=== PATIENT | male | born 1960 | race Caucasian/White ===

== ENCOUNTER 2021-04-10 07:01 | Day surgery (SDC) | payer BC ==
[~2021-04-10 07:01] MED LIST: Midazolam 1 MG/ML 2 ML SDV ONE; Propofol 200 MG/20 ML SDV ONE; fentaNYL 100 MCG/2 ML SDV ONE
[2021-04-10] MEDS ORDERED: Dextrose 5%-Lactated Ringers 1,000 ML IV SCH (07:30)
--- NOTE | 2021-04-12 17:03 | OR ---
DATE OF PROCEDURE: 04/10/2021 SURGEON: Kostas Younger MD PREOPERATIVE DIAGNOSES: 1. Longstanding gastroesophageal reflux disease. 2. History of colonic diverticulosis with indications for screening colonoscopy. POSTOPERATIVE DIAGNOSES: 1. Longstanding gastroesophageal reflux disease with upper endoscopy showing: a. 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 b. Mild antral gastritis. 2. Colonoscopy showing: a. Two very small polyps (25 cm) just above the colorectal anastomosis. b. Uncomplicated left colonic diverticulosis. PROCEDURES PERFORMED: 1. Esophagogastroduodenoscopy with: a. Biopsies of esophagogastric junction for histologic evaluation. b. Biopsies of antrum for CLOtest. 2. Flexible colonoscopy with polypectomy by: a. Biopsy forceps. b. Cautery snare. ANESTHESIA: IV sedation. INDICATION FOR PROCEDURE: This is a 61-year-old male presenting with longstanding gastroesophageal reflux disease along with indications for screening colonoscopy. The patient has been on omeprazole 40 mg a day for a considerable period of time. Plan is to proceed with upper and lower endoscopy with biopsies and/or polypectomy as indicated. Potential risks including bleeding and perforation were discussed, and the patient wishes to proceed. DETAILS OF PROCEDURE: The patient was taken to the operating room and placed in a left lateral decubitus position. IV sedation was administered after which the upper GI endoscope was passed orally through the length of the esophagus and the stomach with retroflexion view of the fundus, and thereafter, through the pyloric channel into the proximal duodenum. Findings included normal hypopharynx, larynx, upper esophageal sphincter, and esophageal body. At the EG junction, a small hiatal hernia was present, and there was some mild edema of the mucosa. 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 No stricturing, plaquing, or other signs of neoplastic change were present however. Within the stomach, there was some patchy redness in the antrum. Otherwise, the pyloric channel and the duodenum to the junction of the third and fourth portions were unremarkable. At this point, biopsies were obtained from the antrum and sent for CLOtest for H pylori. Multiple biopsies were then obtained from the esophagogastric junction and sent for histologic evaluation. Minimal bleeding from the biopsy sites was seen, and the procedure was then concluded. Attention was taken to the colonoscopy. Initial digital rectal exam was performed and was unremarkable. Colonoscope was then passed into the rectum with retroflexion revealing uncomplicated hemorrhoidal columns. Scope was eventually passed to the level of the cecum. The prep was fairly good. The patient was noted to have the colorectal anastomosis from a previous diverticulitis excision several years ago. Otherwise, the patient had some uncomplicated diverticulosis on the colon above the colorectal anastomosis. As mentioned above, the prep was very good. The patient had 2 very small polyps around 25 cm going just a few centimeters above the colorectal anastomosis. One of these was removed by means of biopsy forceps and the other by means of cautery snare. Both were sent separately for histologic evaluation. Minimal bleeding was noted which stopped spontaneously, and the procedure was then concluded. We will have the patient continue on the omeprazole 40 mg a day, and we will contact the patient regarding pathology and NELSON test results and therefore, plan for future endoscopies. Kostas Younger MD /[id number]
== END 2021-04-10 11:10 | disposition home or self-care (01) ==
LOC: JP.SDS 07:01
PROVIDERS: ATTEND Surgery
DX: Z12.11 Encounter for screening for malignant neoplasm of colon (principal); D12.6 Benign neoplasm of colon, unspecified; K21.9 Gastro-esophageal reflux disease without esophagitis; K44.9 Diaphragmatic hernia without obstruction or gangrene; K29.60 Other gastritis without bleeding; K64.9 Unspecified hemorrhoids; K57.30 Diverticulosis of large intestine without perforation or abscess without bleeding; K29.50 Unspecified chronic gastritis without bleeding; K31.A0 Gastric intestinal metaplasia, unspecified; Z98.0 Intestinal bypass and anastomosis status
CPT/HCPCS: 43239; 45380; 45385; 87081; J2250; J2704; J3010; J7121; 88305

== ENCOUNTER 2022-05-28 05:52 | Inpatient (IN) | payer BC ==
[2022-05-28] MEDS ORDERED: Scopolamine 1.5 MG Transdermal Patch TOP ONE (06:18)
[2022-05-28] MEDS ORDERED: Dextrose 5%-Lactated Ringers 1,000 ML IV SCH (06:30)
[2022-05-28] MEDS ORDERED: Acetaminophen 500 MG Tab PO ONE (06:30)
[2022-05-28] MEDS ORDERED: Celecoxib 200 MG Cap PO SCH (06:30)
[2022-05-28] MEDS ORDERED: Lidocaine 1% with EPINEPHrine 1:100,000 50 ML MDV ONE (06:39)
[2022-05-28] MEDS ORDERED: Bupivacaine 0.5% 30 ML SDV ONE (06:39)
[2022-05-28] MEDS ORDERED: cefOXitin 2 GM Vial ONE (06:39)
[2022-05-28] MEDS ORDERED: Ketamine 23 MG in Sodium Chloride 0.9% 19.77 ML IV SCH (07:15)
[2022-05-28] MEDS ORDERED: cefOXitin 2 GM in Sodium Chloride 0.9% 50 ML IV ONE (07:15)
[2022-05-28] MEDS ORDERED: Ketamine 500 MG/5 ML MDV IV SCH (07:15)
[2022-05-28] MEDS ORDERED: Succinylcholine 200 MG/10 ML MDV ONE (07:58)
[2022-05-28] MEDS ORDERED: Glycopyrrolate 0.2 MG/ML 5 ML MDV ONE (07:58)
[2022-05-28] MEDS ORDERED: Neostigmine Methylsulfate 1 MG/ML 5 ML Syringe ONE (07:58)
[2022-05-28] MEDS ORDERED: Rocuronium 50 MG/5 ML Vial ONE ×2 (07:58→08:35)
[2022-05-28] MEDS ORDERED: Propofol 200 MG/20 ML SDV ONE (07:58)
[2022-05-28] MEDS ORDERED: Dexamethasone 4 MG/ML SDV ONE (07:58)
[2022-05-28] MEDS ORDERED: Ondansetron 4 MG/2 ML SDV ONE (07:58)
[2022-05-28] MEDS ORDERED: Sodium Chloride 0.9% 10 ML ONE (08:22)
[2022-05-28] MEDS ORDERED: Meropenem 500 MG SDV ONE (08:22)
[2022-05-28] MEDS: HYDROmorphone/Normal Saline 6 MG/30 ML PCA Vial IV PRN (08:29)
[2022-05-28] MEDS ORDERED: Lactated Ringers 1,000 ML ONE ×2 (08:34)
[2022-05-28] MEDS ORDERED: Naloxone 0.4 MG/ML SDV IV PRN (09:00)
[2022-05-28] MEDS ORDERED: Tranexamic Acid 1,000 MG in Sodium Chloride 0.9% 50 ML IV ONE (10:00)
[2022-05-28] MEDS ORDERED: Linezolid 600 MG/300 ML Premix Bag IRR ONE (10:30)
[2022-05-28] MEDS ORDERED: Cyclobenzaprine 10 MG Tab PO PRN (12:35)
[2022-05-28] MEDS ORDERED: Glucagon,Human Recombinant 1 MG Vial IM PRN (13:00)
[2022-05-28] MEDS ORDERED: Metoclopramide 10 MG/2 ML SDV IVPUSH PRN (13:00)
[2022-05-28] MEDS ORDERED: Labetalol 20 MG/4 ML Syringe IVPUSH PRN (13:00)
[2022-05-28] MEDS ORDERED: Ondansetron 4 MG/2 ML SDV IVPUSH PRN (13:00)
[2022-05-28] MEDS ORDERED: 50% Dextrose in Water 50 ML Syringe IVPUSH PRN (13:00)
[2022-05-28] MEDS ORDERED: diphenhydrAMINE 50 MG/ML SDV IVPUSH PRN (13:00)
[2022-05-28] MEDS ORDERED: Acetaminophen 500 MG Tab PO PRN (13:00)
[2022-05-28] MEDS ORDERED: hydrOXYzine HCL 100 MG/2 ML SDV IM PRN (13:00)
[2022-05-28] MEDS ORDERED: Pantoprazole 40 MG Vial IVPUSH SCH (14:00)
[2022-05-28] MEDS: Lactated Ringers 1,000 ML IV SCH ×2 (14:23→23:39)
[2022-05-28] MEDS: cefOXitin 2 GM in Sodium Chloride 0.9% 50 ML IV SCH ×2 (14:35→19:55)
[2022-05-28] MEDS: Acetaminophen 500 MG Tab PO SCH ×2 (15:35→22:00)
[2022-05-28] MEDS ORDERED: MVI, Adult with Vitamin K 10 ML, Thiamine 200 MG, Zinc/Copper/Manganese/Selenium 1 ML i... IV SCH ×4 (16:00)
[2022-05-28] MEDS ORDERED: Insulin Lispro 100 Unit/ML 3 ML KwikPen SUBCUT ONE (16:41)
[2022-05-28] MEDS: Insulin Lispro 100 Unit/ML 3 ML KwikPen SUBCUT SCH ×2 (16:41→22:00)
[2022-05-28] MEDS: Heparin Sodium 5,000 Units/ML Vial SUBCUT SCH (18:32)
[2022-05-28] MEDS ORDERED: Lactated Ringers 500 ML IV ONE (18:45)
[2022-05-29] MEDS: cefOXitin 2 GM in Sodium Chloride 0.9% 50 ML IV SCH ×4 (02:35→20:10)
[2022-05-29] MEDS ORDERED: Iopamidol 612 MG/ML 50 ML SDV PO STA (02:41)
[2022-05-29] MEDS: HYDROmorphone/Normal Saline 6 MG/30 ML PCA Vial IV PRN (03:28)
[2022-05-29] MEDS: Insulin Lispro 100 Unit/ML 3 ML KwikPen SUBCUT SCH ×4 (05:01→21:58)
[2022-05-29] MEDS: Acetaminophen 500 MG Tab PO SCH ×3 (05:02→21:38)
[2022-05-29] MEDS: Heparin Sodium 5,000 Units/ML Vial SUBCUT SCH ×2 (05:03→18:23)
[2022-05-29 05:18] LABS: ESTIMATED GFR 86 mL/min (>60)
[2022-05-29] MEDS: Lactated Ringers 1,000 ML IV SCH (05:56)
[2022-05-29] MEDS ORDERED: Ondansetron 4 MG Tab.DIS PO PRN (07:38)
[2022-05-29] MEDS ORDERED: Lactated Ringers 1,000 ML IV SCH (07:39)
[2022-05-29] MEDS: Magnesium Sulfate/Water 2 GM/50 ML BAG IV SCH ×3 (09:00→21:33)
[2022-05-29] MEDS: SCOPOLAMINE PATCH CHECK TOP SCH (09:04)
[2022-05-29] MEDS: Aspirin 81 MG Tab.EC PO SCH (09:04)
[2022-05-29] MEDS: Celecoxib 200 MG Cap PO SCH ×2 (09:04→21:38)
[2022-05-29] MEDS: Lisinopril 2.5 MG Tab PO SCH (09:05)
[2022-05-29] MEDS: Metoprolol Succinate 25 MG Tab.ER PO SCH (09:05)
[2022-05-29] MEDS ORDERED: MVI, Adult with Vitamin K 10 ML, Thiamine 200 MG, Zinc/Copper/Manganese/Selenium 1 ML i... IV SCH ×4 (16:00)
[2022-05-29] MEDS ORDERED: Pantoprazole 40 MG Delayed-Release Granules 1 Packet PO SCH (16:30)
[2022-05-29] MEDS: Bisacodyl 5 MG Tab PO SCH (18:22)
[2022-05-29] MEDS: hydrOXYzine HCl 25 MG Tab PO PRN (21:59)
[2022-05-30] MEDS: cefOXitin 2 GM in Sodium Chloride 0.9% 50 ML IV SCH ×2 (02:15→07:32)
[2022-05-30] MEDS: Magnesium Sulfate/Water 2 GM/50 ML BAG IV SCH ×3 (03:06→14:07)
[2022-05-30] MEDS: Insulin Lispro 100 Unit/ML 3 ML KwikPen SUBCUT SCH ×4 (05:10→22:09)
[2022-05-30] MEDS: Acetaminophen 500 MG Tab PO SCH ×3 (05:11→21:43)
[2022-05-30] MEDS: Bisacodyl 5 MG Tab PO SCH ×2 (05:11→18:06)
[2022-05-30] MEDS: Heparin Sodium 5,000 Units/ML Vial SUBCUT SCH ×2 (05:11→18:06)
[2022-05-30 05:27] LABS: ESTIMATED GFR 97 mL/min (>60)
[2022-05-30] MEDS ORDERED: hydrOXYzine HCl 25 MG Tab PO PRN (07:50)
[2022-05-30] MEDS: Aspirin 81 MG Tab.EC PO SCH (08:37)
[2022-05-30] MEDS: Metoprolol Succinate 25 MG Tab.ER PO SCH (08:37)
[2022-05-30] MEDS: Lisinopril 2.5 MG Tab PO SCH (08:37)
[2022-05-30] MEDS: SCOPOLAMINE PATCH CHECK TOP SCH (08:37)
[2022-05-30] MEDS: Celecoxib 200 MG Cap PO SCH ×2 (08:37→21:36)
[2022-05-30] MEDS: HYDROmorphone 2 MG Tab PO PRN ×3 (08:40→21:42)
[2022-05-30] MEDS ORDERED: Cyanocobalamin (Vitamin B12) 1,000 MCG/ML SDV IM ONE (09:00)
[2022-05-30] MEDS ORDERED: Pantoprazole 40 MG Tab.CR PO SCH (16:30)
[2022-05-30] MEDS: hydrOXYzine HCl 25 MG Tab PO PRN (21:42)
[2022-05-31] MEDS: HYDROmorphone 2 MG Tab PO PRN ×2 (04:26→10:07)
[2022-05-31] MEDS: hydrOXYzine HCl 25 MG Tab PO PRN ×2 (04:27→10:07)
[2022-05-31] MEDS: Insulin Lispro 100 Unit/ML 3 ML KwikPen SUBCUT SCH (04:27)
[2022-05-31] MEDS: Heparin Sodium 5,000 Units/ML Vial SUBCUT SCH (06:08)
[2022-05-31] MEDS: Bisacodyl 5 MG Tab PO SCH (06:08)
[2022-05-31] MEDS: Acetaminophen 500 MG Tab PO SCH (06:09)
[2022-05-31] MEDS ORDERED: Magnesium Hydroxide 400 MG/5 ML Susp 30 ML Cup PO PRN (07:20)
[2022-05-31] MEDS: Celecoxib 200 MG Cap PO SCH (08:15)
[2022-05-31] MEDS: Aspirin 81 MG Tab.EC PO SCH (08:15)
[2022-05-31] MEDS: Lisinopril 2.5 MG Tab PO SCH (08:18)
[2022-05-31] MEDS: Metoprolol Succinate 25 MG Tab.ER PO SCH (08:18)
== END 2022-05-31 10:15 | disposition home or self-care (01) | DRG 403 ==
LOC: JP.SDS 05:52 → JP.2SS 10:45 → EDSTATUS 12:02
PROVIDERS: ADMIT Surgery; ATTEND Surgery
PROC: 0D160ZA Bypass Stomach to Jejunum, Open Approach (ICD-10-PCS; principal; 2022-05-28)
PROC: 0FB20ZX Excision of Left Lobe Liver, Open Approach, Diagnostic (ICD-10-PCS; 2022-05-28)
PROC: 0BQT0ZZ Repair Diaphragm, Open Approach (ICD-10-PCS; 2022-05-28)
PROC: 3E0M05Z Introduction of Adhesion Barrier into Peritoneal Cavity, Open Approach (ICD-10-PCS; 2022-05-28)
DX: E66.01 Morbid (severe) obesity due to excess calories (principal); R16.0 Hepatomegaly, not elsewhere classified; K44.9 Diaphragmatic hernia without obstruction or gangrene; K56.609 Unspecified intestinal obstruction, unspecified as to partial versus complete obstruction; I25.10 Atherosclerotic heart disease of native coronary artery without angina pectoris; E11.9 Type 2 diabetes mellitus without complications; I10 Essential (primary) hypertension; Z68.32 Body mass index [BMI] 32.0-32.9, adult; Z91.030 Bee allergy status
CPT/HCPCS: 36415; 74240; 74240-26; 80053; 82947; 83735; 84100; 85025; 85027; 88305; 88307; 88313; A9270-GY; C9113; J0171; J0330; J0694; J1100; J1170; J1200; J1644; J1815; J1815-GY; J2020; J2185; J2405; J2704; J2710; J2795; J3411; J3420; J3475; J3490; J7120; J7121; Q9967

== ENCOUNTER 2022-06-28 08:48 | Day surgery (SDC) | payer BC ==
[~2022-06-28 08:48] MED LIST changes: +Lactated Ringers 1,000 ML IV SCH; -fentaNYL 100 MCG/2 ML SDV ONE; +fentaNYL 50 MCG/ML SDV ONE
[2022-06-28] MEDS ORDERED: Glycopyrrolate 0.2 MG/ML 2 ML SDV IVPUSH ONE ×2 (09:00→09:30)
[2022-06-28] MEDS ORDERED: Cyanocobalamin (Vitamin B12) 1,000 MCG/ML SDV IM ONE (09:02)
[2022-06-28 09:39] LABS: ESTIMATED GFR 101 mL/min (>60)
[2022-06-28] MEDS ORDERED: MVI, Adult with Vitamin K 10 ML, Thiamine 200 MG, Zinc/Copper/Manganese/Selenium 1 ML i... IV ONE ×4 (10:00)
[2022-06-28] MEDS ORDERED: Dexamethasone 4 MG/ML SDV ONE (10:26)
== END 2022-06-28 11:55 | disposition home or self-care (01) ==
LOC: JP.SDS 08:48
PROVIDERS: ATTEND Surgery
DX: K94.23 Gastrostomy malfunction (principal); E78.5 Hyperlipidemia, unspecified; E11.9 Type 2 diabetes mellitus without complications; Z98.84 Bariatric surgery status; Z79.899 Other long term (current) drug therapy; Z91.048 Other nonmedicinal substance allergy status
CPT/HCPCS: 36415; 43247; 43249; 76000; 80053; 83735; 84100; 85027; C1726; J1100; J2250; J2704; J3010; J3411; J3420; J3490; J7120

== ENCOUNTER 2022-07-12 08:58 | Day surgery (SDC) | payer BC ==
[2022-07-12] MEDS ORDERED: Cyanocobalamin (Vitamin B12) 1,000 MCG/ML SDV IM ONE (09:30)
[2022-07-12] MEDS ORDERED: Lactated Ringers 1,000 ML IV ONE (09:30)
[2022-07-12] MEDS ORDERED: MVI, Adult with Vitamin K 10 ML, Thiamine 200 MG, Zinc/Copper/Manganese/Selenium 1 ML i... IV ONE ×4 (10:30)
[2022-07-12] MEDS ORDERED: Glycopyrrolate 0.2 MG/ML 2 ML SDV IVPUSH ONE (10:30)
[2022-07-12] MEDS ORDERED: fentaNYL 100 MCG/2 ML SDV ONE (10:38)
[2022-07-12] MEDS ORDERED: Midazolam 1 MG/ML 2 ML SDV ONE (10:38)
[2022-07-12] MEDS ORDERED: Propofol 200 MG/20 ML SDV ONE (10:38)
[2022-07-12] MEDS ORDERED: Dexamethasone 4 MG/ML SDV ONE (11:18)
[2022-07-12] MEDS ORDERED: Fluconazole/Normal Saline 400 MG in Premix Bag 1 BAG IV ONE (11:32)
== END 2022-07-12 14:30 | disposition home or self-care (01) ==
LOC: JP.SDS 08:58
PROVIDERS: ATTEND Surgery
DX: K94.23 Gastrostomy malfunction (principal); R13.10 Dysphagia, unspecified; I10 Essential (primary) hypertension; E78.5 Hyperlipidemia, unspecified; K21.9 Gastro-esophageal reflux disease without esophagitis; I25.10 Atherosclerotic heart disease of native coronary artery without angina pectoris; E66.9 Obesity, unspecified; E11.9 Type 2 diabetes mellitus without complications; Z68.30 Body mass index [BMI] 30.0-30.9, adult; Z79.899 Other long term (current) drug therapy; Z91.048 Other nonmedicinal substance allergy status
CPT/HCPCS: 43245; C1726; J1100; J1450; J2250; J2704; J3010; J3411; J3420; J3490; J7120

== ENCOUNTER 2022-07-27 10:58 | Day surgery (SDC) | payer BC ==
[~2022-07-27 10:58] MED LIST changes: -Lactated Ringers 1,000 ML IV SCH; +fentaNYL 100 MCG/2 ML SDV ONE; -fentaNYL 50 MCG/ML SDV ONE
[2022-07-27] MEDS ORDERED: Lactated Ringers 1,000 ML IV SCH (11:00)
[2022-07-27] MEDS ORDERED: Cyanocobalamin (Vitamin B12) 1,000 MCG/ML SDV IM ONE (11:00)
[2022-07-27] MEDS ORDERED: MVI, Adult with Vitamin K 10 ML, Thiamine 200 MG, Chromium/Copper/Mang/Selen/Zn 1 ML in... IV ONE ×4 (12:00)
[2022-07-27] MEDS ORDERED: Dexamethasone 4 MG/ML SDV ONE (14:04)
[2022-07-27] MEDS ORDERED: Ondansetron 4 MG/2 ML SDV ONE (14:13)
== END 2022-07-27 15:18 | disposition home or self-care (01) ==
LOC: JP.SDS 10:58
PROVIDERS: ATTEND Surgery
DX: K94.23 Gastrostomy malfunction (principal); R13.10 Dysphagia, unspecified; K90.9 Intestinal malabsorption, unspecified; Z79.899 Other long term (current) drug therapy; Z91.048 Other nonmedicinal substance allergy status
CPT/HCPCS: 43245; C1726; J1100; J2250; J2405; J2704; J3010; J3411; J3420; J7120

== ENCOUNTER 2022-08-20 05:56 | Day surgery (SDC) | payer BC ==
[2022-08-20] MEDS ORDERED: Lactated Ringers 1,000 ML IV ONE (06:15)
[2022-08-20] MEDS ORDERED: Cyanocobalamin (Vitamin B12) 1,000 MCG/ML SDV IM ONE (06:30)
[2022-08-20] MEDS ORDERED: Propofol 200 MG/20 ML SDV ONE (07:07)
[2022-08-20] MEDS ORDERED: fentaNYL 50 MCG/ML SDV ONE (07:07)
[2022-08-20] MEDS ORDERED: Dexamethasone 4 MG/ML SDV ONE (07:16)
[2022-08-20] MEDS ORDERED: Ondansetron 4 MG/2 ML SDV ONE (07:16)
[2022-08-20] MEDS ORDERED: MVI, Adult with Vitamin K 10 ML, Thiamine 200 MG, Zinc/Copper/Manganese/Selenium 1 ML i... IV ONE ×4 (07:30)
== END 2022-08-20 09:53 | disposition home or self-care (01) ==
LOC: JP.SDS 05:56
PROVIDERS: ATTEND Surgery
DX: K95.89 Other complications of other bariatric procedure (principal); K31.89 Other diseases of stomach and duodenum; R13.10 Dysphagia, unspecified; E78.00 Pure hypercholesterolemia, unspecified; I25.10 Atherosclerotic heart disease of native coronary artery without angina pectoris; K21.9 Gastro-esophageal reflux disease without esophagitis; E11.9 Type 2 diabetes mellitus without complications; Z79.899 Other long term (current) drug therapy; Z98.890 Other specified postprocedural states; Z91.048 Other nonmedicinal substance allergy status
CPT/HCPCS: 43245; C1726; J1100; J2405; J2704; J3010; J3411; J3420; J7120; J3490

== ENCOUNTER 2022-09-17 07:36 | Day surgery (SDC) | payer BC ==
[2022-09-17] MEDS: Scopolamine 1.5 MG Transdermal Patch TOP SCH ×2 (07:47→08:06)
[2022-09-17] MEDS ORDERED: Lactated Ringers 1,000 ML IV SCH (08:15)
[2022-09-17] MEDS ORDERED: Propofol 200 MG/20 ML SDV ONE (08:18)
[2022-09-17] MEDS ORDERED: fentaNYL 100 MCG/2 ML SDV ONE (08:18)
[2022-09-17] MEDS ORDERED: Midazolam 1 MG/ML 2 ML SDV ONE (08:18)
[2022-09-17] MEDS ORDERED: Ondansetron 4 MG/2 ML SDV ONE (08:20)
[2022-09-17] MEDS ORDERED: Dexamethasone 4 MG/ML SDV ONE (08:20)
[2022-09-17] MEDS ORDERED: MVI, Adult with Vitamin K 10 ML, Thiamine 200 MG, Zinc/Copper/Manganese/Selenium 1 ML i... IV ONE ×4 (09:30)
== END 2022-09-17 11:12 | disposition home or self-care (01) ==
LOC: JP.SDS 07:36
PROVIDERS: ATTEND Surgery
DX: K94.23 Gastrostomy malfunction (principal); K31.89 Other diseases of stomach and duodenum; I10 Essential (primary) hypertension; E11.9 Type 2 diabetes mellitus without complications; K21.9 Gastro-esophageal reflux disease without esophagitis; I25.10 Atherosclerotic heart disease of native coronary artery without angina pectoris; Z95.5 Presence of coronary angioplasty implant and graft; Z79.899 Other long term (current) drug therapy; Z91.048 Other nonmedicinal substance allergy status
CPT/HCPCS: 43266; C1726; C1874; J1100; J1790; J2250; J2405; J2704; J3010; J3411; J7120; A9270-GY; J3490

== ENCOUNTER 2022-10-16 07:40 | Day surgery (SDC) | payer BC ==
[~2022-10-16 07:40] MED LIST changes: +Cyanocobalamin (Vitamin B12) 1,000 MCG/ML SDV IM ONE; +Lactated Ringers 1,000 ML IV ONE; -Midazolam 1 MG/ML 2 ML SDV ONE; -Propofol 200 MG/20 ML SDV ONE; -fentaNYL 100 MCG/2 ML SDV ONE
[2022-10-16] MEDS ORDERED: MVI, Adult with Vitamin K 10 ML, Thiamine 200 MG, Zinc/Copper/Manganese/Selenium 1 ML i... IV ONE ×8 (08:15→09:15)
[2022-10-16] MEDS ORDERED: Lactated Ringers 1,000 ML IV ONE (08:15)
[2022-10-16 08:26] LABS: ESTIMATED GFR 101 mL/min (>60)
[2022-10-16] MEDS ORDERED: Cyanocobalamin (Vitamin B12) 1,000 MCG/ML SDV IM ONE (08:30)
[2022-10-16] MEDS ORDERED: Scopolamine 1.5 MG Transdermal Patch TOP ONE (08:32)
[2022-10-16] MEDS ORDERED: Rocuronium 50 MG/5 ML Vial ONE (09:26)
[2022-10-16] MEDS ORDERED: Glycopyrrolate 0.2 MG/ML 5 ML MDV ONE (09:26)
[2022-10-16] MEDS ORDERED: Neostigmine Methylsulfate 1 MG/ML 5 ML Syringe ONE (09:26)
[2022-10-16] MEDS ORDERED: Ondansetron 4 MG/2 ML SDV ONE (09:26)
[2022-10-16] MEDS ORDERED: fentaNYL 250 MCG/5 ML SDV ONE (09:26)
[2022-10-16] MEDS ORDERED: Dexamethasone 4 MG/ML SDV ONE (09:26)
[2022-10-16] MEDS ORDERED: Succinylcholine 200 MG/10 ML MDV ONE (09:26)
[2022-10-16] MEDS ORDERED: Propofol 200 MG/20 ML SDV ONE (09:26)
== END 2022-10-16 15:10 | disposition home or self-care (01) ==
LOC: JP.SDS 07:40
PROVIDERS: ATTEND Surgery
DX: K91.89 Other postprocedural complications and disorders of digestive system (principal); K31.89 Other diseases of stomach and duodenum; T85.528A Displacement of other gastrointestinal prosthetic devices, implants and grafts, initial encounter; R13.10 Dysphagia, unspecified; I10 Essential (primary) hypertension; I25.10 Atherosclerotic heart disease of native coronary artery without angina pectoris; Z91.048 Other nonmedicinal substance allergy status
CPT/HCPCS: 36415; 43245; 43247; 74019; 80053; 83735; 84100; 85027; A9270; C1726; J0330; J1100; J2405; J2704; J3010; J3411; J3420; J7120; J2710; J3490

== ENCOUNTER 2022-11-01 06:31 | Day surgery (SDC) | payer BC ==
[2022-11-01] MEDS ORDERED: Lactated Ringers 1,000 ML IV SCH (07:00)
[2022-11-01] MEDS ORDERED: Midazolam 1 MG/ML 2 ML SDV ONE (07:10)
[2022-11-01] MEDS ORDERED: fentaNYL 50 MCG/ML SDV ONE (07:11)
[2022-11-01] MEDS ORDERED: Propofol 200 MG/20 ML SDV ONE (07:11)
[2022-11-01] MEDS ORDERED: Cyanocobalamin (Vitamin B12) 1,000 MCG/ML SDV IM ONE ×2 (07:30→09:00)
[2022-11-01] MEDS ORDERED: Dexamethasone 4 MG/ML SDV ONE (07:59)
[2022-11-01] MEDS ORDERED: MVI, Adult with Vitamin K 10 ML, Thiamine 200 MG, Zinc/Copper/Manganese/Selenium 1 ML i... IV ONE ×4 (10:00)
== END 2022-11-01 09:57 | disposition home or self-care (01) ==
LOC: JP.SDS 06:31
PROVIDERS: ATTEND Surgery
DX: K94.23 Gastrostomy malfunction (principal); I10 Essential (primary) hypertension; E78.5 Hyperlipidemia, unspecified; Z79.899 Other long term (current) drug therapy
CPT/HCPCS: 43245; 76000; C1726; J1100; J2250; J2704; J3010; J3411; J3420; J7120; J3490

== ENCOUNTER 2022-11-15 08:02 | Day surgery (SDC) | payer BC ==
[~2022-11-15 08:02] MED LIST changes: -Cyanocobalamin (Vitamin B12) 1,000 MCG/ML SDV IM ONE; -Lactated Ringers 1,000 ML IV ONE; +Midazolam 1 MG/ML 2 ML SDV ONE; +Propofol 200 MG/20 ML SDV ONE; +fentaNYL 50 MCG/ML SDV ONE
[2022-11-15] MEDS ORDERED: Lactated Ringers 1,000 ML IV SCH (08:30)
[2022-11-15] MEDS ORDERED: Cyanocobalamin (Vitamin B12) 1,000 MCG/ML SDV IM ONE (08:30)
[2022-11-15] MEDS ORDERED: MVI, Adult with Vitamin K 10 ML, Thiamine 200 MG, Zinc/Copper/Manganese/Selenium 1 ML i... IV ONE ×4 (09:30)
[2022-11-15] MEDS ORDERED: Dexamethasone 4 MG/ML SDV ONE (10:02)
== END 2022-11-15 12:53 | disposition home or self-care (01) ==
LOC: JP.SDS 08:02
PROVIDERS: ATTEND Surgery
DX: K91.89 Other postprocedural complications and disorders of digestive system (principal); K31.89 Other diseases of stomach and duodenum; I10 Essential (primary) hypertension; E11.9 Type 2 diabetes mellitus without complications; Z98.0 Intestinal bypass and anastomosis status; E66.9 Obesity, unspecified; K21.9 Gastro-esophageal reflux disease without esophagitis; Z98.84 Bariatric surgery status; Z91.048 Other nonmedicinal substance allergy status
CPT/HCPCS: 76000; C1726; J1100; J2250; J2704; J3010; J3411; J3420; J3490; J7120

== ENCOUNTER 2022-11-29 09:02 | Day surgery (SDC) | payer BC ==
[2022-11-29] MEDS ORDERED: Cyanocobalamin (Vitamin B12) 1,000 MCG/ML SDV IM ONE (09:30)
[2022-11-29] MEDS ORDERED: Lactated Ringers 1,000 ML IV ONE (09:30)
[2022-11-29] MEDS ORDERED: Dexamethasone 4 MG/ML SDV ONE (10:18)
[2022-11-29] MEDS ORDERED: MVI, Adult with Vitamin K 10 ML, Thiamine 200 MG, Zinc/Copper/Manganese/Selenium 1 ML i... IV ONE ×4 (10:30)
== END 2022-11-29 12:20 | disposition home or self-care (01) ==
LOC: JP.SDS 09:02
PROVIDERS: ATTEND Surgery
DX: K94.23 Gastrostomy malfunction (principal); R13.10 Dysphagia, unspecified; E11.9 Type 2 diabetes mellitus without complications; Z91.048 Other nonmedicinal substance allergy status
CPT/HCPCS: 43245; C1726; J1100; J2250; J2704; J3010; J3411; J3420; J7120; J3490

== ENCOUNTER 2022-12-14 06:00 | Day surgery (SDC) | payer BC ==
[2022-12-14] MEDS ORDERED: Lactated Ringers 1,000 ML IV SCH (07:00)
[2022-12-14] MEDS ORDERED: Cyanocobalamin (Vitamin B12) 1,000 MCG/ML SDV IM ONE (07:00)
[2022-12-14] MEDS ORDERED: Propofol 200 MG/20 ML SDV ONE (07:13)
[2022-12-14] MEDS ORDERED: Midazolam 1 MG/ML 2 ML SDV ONE (07:13)
[2022-12-14] MEDS ORDERED: fentaNYL 50 MCG/ML SDV ONE (07:14)
[2022-12-14] MEDS ORDERED: MVI, Adult with Vitamin K 10 ML, Thiamine 200 MG, Zinc/Copper/Manganese/Selenium 1 ML i... IV ONE ×4 (08:00)
[2022-12-14] MEDS ORDERED: Dexamethasone 4 MG/ML SDV ONE (08:28)
== END 2022-12-14 10:12 | disposition home or self-care (01) ==
LOC: JP.SDS 06:00
PROVIDERS: ATTEND Surgery
DX: K91.89 Other postprocedural complications and disorders of digestive system (principal); K31.89 Other diseases of stomach and duodenum; R13.10 Dysphagia, unspecified; K29.70 Gastritis, unspecified, without bleeding; E78.00 Pure hypercholesterolemia, unspecified; I10 Essential (primary) hypertension; K21.9 Gastro-esophageal reflux disease without esophagitis; E11.9 Type 2 diabetes mellitus without complications; E66.9 Obesity, unspecified; Z98.0 Intestinal bypass and anastomosis status; Z91.048 Other nonmedicinal substance allergy status; Z95.5 Presence of coronary angioplasty implant and graft
CPT/HCPCS: 43245; C1726; J1100; J2250; J2704; J3010; J3411; J3420; J7120; J3490

== ENCOUNTER 2023-01-07 06:56 | Day surgery (SDC) | payer BC ==
[2023-01-07] MEDS ORDERED: fentaNYL 50 MCG/ML SDV ONE (07:12)
[2023-01-07] MEDS ORDERED: Midazolam 1 MG/ML 2 ML SDV ONE (07:12)
[2023-01-07] MEDS ORDERED: Propofol 200 MG/20 ML SDV ONE (07:13)
[2023-01-07] MEDS ORDERED: Cyanocobalamin (Vitamin B12) 1,000 MCG/ML SDV IM ONE (07:15)
[2023-01-07] MEDS ORDERED: Lactated Ringers 1,000 ML IV ONE (07:30)
[2023-01-07] MEDS ORDERED: MVI, Adult with Vitamin K 10 ML, Thiamine 200 MG, Zinc/Copper/Manganese/Selenium 1 ML i... IV ONE ×4 (08:30)
[2023-01-07] MEDS ORDERED: Dexamethasone 4 MG/ML SDV ONE (09:02)
== END 2023-01-07 10:40 | disposition home or self-care (01) ==
LOC: JP.SDS 06:56
PROVIDERS: ATTEND Surgery
DX: K91.89 Other postprocedural complications and disorders of digestive system (principal); K31.89 Other diseases of stomach and duodenum; Z91.048 Other nonmedicinal substance allergy status
CPT/HCPCS: 43245; C1726; J1100; J2250; J2704; J3010; J3411; J3420; J7120; J3490

== ENCOUNTER 2023-02-05 09:04 | Day surgery (SDC) | payer BC ==
[2023-02-05] MEDS ORDERED: Lactated Ringers 1,000 ML IV SCH (09:15)
[2023-02-05] MEDS ORDERED: Cyanocobalamin (Vitamin B12) 1,000 MCG/ML SDV IM ONE (10:00)
[2023-02-05] MEDS: MVI, Adult with Vitamin K 10 ML, Thiamine 200 MG, Zinc/Copper/Manganese/Selenium 1 ML i... IV ONE ×8 (10:09→10:13)
[2023-02-05] MEDS ORDERED: Midazolam 1 MG/ML 2 ML SDV ONE (10:36)
[2023-02-05] MEDS ORDERED: fentaNYL 100 MCG/2 ML SDV ONE (10:36)
[2023-02-05] MEDS ORDERED: Propofol 200 MG/20 ML SDV ONE (10:36)
[2023-02-05] MEDS ORDERED: Dexamethasone 4 MG/ML SDV ONE (11:15)
== END 2023-02-05 11:35 | disposition home or self-care (01) ==
LOC: JP.SDS 09:04
PROVIDERS: ATTEND Surgery
DX: K91.89 Other postprocedural complications and disorders of digestive system (principal); K31.89 Other diseases of stomach and duodenum; R13.10 Dysphagia, unspecified; I10 Essential (primary) hypertension; E78.5 Hyperlipidemia, unspecified; I25.10 Atherosclerotic heart disease of native coronary artery without angina pectoris; K21.9 Gastro-esophageal reflux disease without esophagitis; E11.9 Type 2 diabetes mellitus without complications; K90.9 Intestinal malabsorption, unspecified; Z95.5 Presence of coronary angioplasty implant and graft; Z91.048 Other nonmedicinal substance allergy status
CPT/HCPCS: 43245; J1100; J2250; J2704; J3010; J3411; J3420; J7120; J3490

== ENCOUNTER 2023-03-21 07:26 | Day surgery (SDC) | payer BC ==
[2023-03-21] MEDS ORDERED: Lactated Ringers 1,000 ML IV ONE (07:45)
[2023-03-21] MEDS ORDERED: Cyanocobalamin (Vitamin B12) 1,000 MCG/ML SDV IM ONE (07:45)
[2023-03-21] MEDS ORDERED: Midazolam 1 MG/ML 2 ML SDV ONE (08:38)
[2023-03-21] MEDS ORDERED: Propofol 200 MG/20 ML SDV ONE (08:39)
[2023-03-21] MEDS ORDERED: fentaNYL 50 MCG/ML SDV ONE (08:39)
[2023-03-21] MEDS ORDERED: MVI, Adult with Vitamin K 10 ML, Thiamine 200 MG, Chromium/Copper/Mang/Selen/Zn 1 ML in... IV ONE ×4 (08:45)
[2023-03-21] MEDS ORDERED: Dexamethasone 4 MG/ML SDV ONE (10:03)
== END 2023-03-21 11:30 | disposition home or self-care (01) ==
LOC: JP.SDS 07:26
PROVIDERS: ATTEND Surgery
DX: K91.89 Other postprocedural complications and disorders of digestive system (principal); K31.89 Other diseases of stomach and duodenum; E78.5 Hyperlipidemia, unspecified; I10 Essential (primary) hypertension; I25.10 Atherosclerotic heart disease of native coronary artery without angina pectoris; K21.9 Gastro-esophageal reflux disease without esophagitis; E11.9 Type 2 diabetes mellitus without complications; K90.9 Intestinal malabsorption, unspecified; K29.70 Gastritis, unspecified, without bleeding; Z98.0 Intestinal bypass and anastomosis status; Z91.048 Other nonmedicinal substance allergy status
CPT/HCPCS: 43245; J1100; J2250; J2704; J3010; J3411; J3420; J7120

== ENCOUNTER 2023-07-09 08:06 | Day surgery (SDC) | payer BC ==
[2023-07-09 08:53] LABS: BASOPHILS ABSOLUTE AUTO 0.03 K/uL (0.00-0.10); BASOPHILS PERCENT AUTO 0.6 % (0.1-1.3); EOSINOPHILS ABSOLUTE AUTO 0.07 K/uL (0.00-0.40); EOSINOPHILS PERCENT AUTO 1.3 % (0.0-5.4); HEMATOCRIT 31.6 % (38.4-49.7); IMMATURE GRAN PERCENT AUTO 0.2 % (0.0-0.7); LYMPHOCYTES ABSOLUTE AUTO 1.52 K/uL (0.8-3.3); LYMPHOCYTES PERCENT AUTO 28.6 % (11.4-47.7); MEAN CORPUSCULAR HEMOGLOBIN 32.2 pg (31.6-35.5); MEAN CORPUSCULAR HGB CONC 34.8 g/dL (31.6-35.5); MEAN CORPUSCULAR VOLUME 92.4 fL (81.4-99.0); MONOCYTES PERCENT AUTO 9.4 % (3.3-12.6); NEUTROPHILS ABSOLUTE AUTO 3.19 K/uL (1.0-7.6); NEUTROPHILS PERCENT AUTO 59.9 % (40.0-78.1); PLATELET COUNT,PLT 221 K/uL (130-375); RED BLOOD CELL COUNT 3.42 M/uL (4.14-5.76); WHITE BLOOD CELL COUNT,WBC 5.3 K/uL (3.2-11.0)
[2023-07-09 08:54] LABS: IMMATURE GRAN ABSOLUTE AUTO 0.01 K/uL (0.00-0.23)
[2023-07-09] MEDS ORDERED: Sodium Chloride 0.9% 1,000 ML IV SCH (09:00)
[2023-07-09 09:12] LABS: A/G RATIO 1.2 (1.2-2.2); ALANINE AMINOTRANSFERASE,ALT 34 U/L (12-78); ALKALINE PHOSPHATASE 39 U/L (46-116); ASPARTATE AMNIOTRANSFERASE,AST 24 U/L (15-37); BILIRUBIN TOTAL 0.7 mg/dL (0.2-1.0); BLOOD UREA NITROGEN,BUN 31 mg/dL (7-18); CALCIUM 7.9 mg/dL (8.5-10.1); CARBON DIOXIDE,CO2 26 mmol/L (21-32); CHLORIDE,CL 107 mmol/L (100-108); CREATININE 0.8 mg/dL (0.8-1.3); EST CRCL DRUG DOSING (CG) 101.02 mL/min; ESTIMATED GFR 100 mL/min (>60); GLUCOSE RANDOM 158 mg/dL (74-106); POTASSIUM,K 3.7 mmol/L (3.6-5.2); PROTEIN TOTAL,TP 5.5 g/dL (6.4-8.2); SODIUM,NA 141 mmol/L (140-148)
[2023-07-09] MEDS ORDERED: Pantoprazole 40 MG Vial IVPUSH ONE (09:28)
[2023-07-09] MEDS ORDERED: Propofol 200 MG/20 ML SDV ONE (09:53)
[2023-07-09] MEDS ORDERED: fentaNYL 100 MCG/2 ML SDV ONE (09:53)
[2023-07-09] MEDS ORDERED: Dexamethasone 4 MG/ML SDV ONE (11:11)
[2023-07-09] MEDS ORDERED: Sodium Chloride 0.9% 10 ML Syringe FLUSH ONE (12:22)
[2023-07-09] MEDS ORDERED: Iopamidol 612 MG/ML 100 ML Bottle IV SCH (12:30)
[2023-07-09] MEDS ORDERED: Sodium Chloride 0.9% 80 ML IV SCH (12:30)
[2023-07-09] MEDS: Iopamidol 612 MG/ML 50 ML SDV PO ONE (13:51)
== END 2023-07-09 14:00 | disposition home or self-care (01) ==
LOC: JP.ED 08:06 → JP.SDS 12:08 → JP.ED 16:00
PROVIDERS: ATTEND Surgery
DX: D64.9 Anemia, unspecified (principal); Z98.0 Intestinal bypass and anastomosis status; E11.40 Type 2 diabetes mellitus with diabetic neuropathy, unspecified; I10 Essential (primary) hypertension; K21.9 Gastro-esophageal reflux disease without esophagitis; E78.00 Pure hypercholesterolemia, unspecified; N40.0 Benign prostatic hyperplasia without lower urinary tract symptoms; E66.9 Obesity, unspecified; Z68.22 Body mass index [BMI] 22.0-22.9, adult; Z79.82 Long term (current) use of aspirin; Z79.899 Other long term (current) drug therapy; Z91.048 Other nonmedicinal substance allergy status
CPT/HCPCS: 36415; 43245; 74177; 80053; 83735; 85018; 85025; 86850; 86900; 86901; 86920; 86922; 87635; 99285; J1100; J2704; J3010; J3490; J7030; Q9967; U0002

== ENCOUNTER 2023-07-11 06:34 | Day surgery (SDC) | payer BC ==
[2023-07-11] MEDS ORDERED: Sodium Chloride 0.9% 1,000 ML IV SCH (07:00)
[2023-07-11] MEDS ORDERED: fentaNYL 100 MCG/2 ML SDV ONE (07:13)
[2023-07-11] MEDS ORDERED: Propofol 200 MG/20 ML SDV ONE (07:14)
== END 2023-07-11 10:00 | disposition home or self-care (01) ==
LOC: JP.SDS 06:34
PROVIDERS: ATTEND Surgery
DX: K57.30 Diverticulosis of large intestine without perforation or abscess without bleeding (principal); E11.9 Type 2 diabetes mellitus without complications; E78.5 Hyperlipidemia, unspecified; I10 Essential (primary) hypertension; Z79.899 Other long term (current) drug therapy; Z91.038 Other insect allergy status; Z88.8 Allergy status to other drugs, medicaments and biological substances
CPT/HCPCS: 45378; J2704; J3010; J7030

== ENCOUNTER 2024-05-04 16:39 | Emergency (ER) | payer BC ==
[2024-05-04] MEDS: Ondansetron 4 MG/2 ML SDV IVPUSH ONE (17:39)
[2024-05-04] MEDS: Sodium Chloride 0.9% 1,000 ML IV SCH ×2 (17:39→19:05)
[2024-05-04 17:40] LABS: BASOPHILS ABSOLUTE AUTO 0.07 K/uL (0.00-0.10); BASOPHILS PERCENT AUTO 0.6 % (0.1-1.3); EOSINOPHILS ABSOLUTE AUTO 0.01 K/uL (0.00-0.40); EOSINOPHILS PERCENT AUTO 0.1 % (0.0-5.4); HEMATOCRIT 43.5 % (38.4-49.7); HEMOGLOBIN 15.7 g/dL (12.9-16.9); IMMATURE GRAN ABSOLUTE AUTO 0.03 K/uL (0.00-0.23); IMMATURE GRAN PERCENT AUTO 0.3 % (0.0-0.7); LYMPHOCYTES ABSOLUTE AUTO 0.83 K/uL (0.8-3.3); LYMPHOCYTES PERCENT AUTO 7.6 % (11.4-47.7); MEAN CORPUSCULAR HEMOGLOBIN 32.7 pg (31.6-35.5); MEAN CORPUSCULAR HGB CONC 36.1 g/dL (31.6-35.5); MEAN CORPUSCULAR VOLUME 90.6 fL (81.4-99.0); MONOCYTES ABSOLUTE AUTO 1.15 K/uL (0.20-0.90); MONOCYTES PERCENT AUTO 10.6 % (3.3-12.6); NEUTROPHILS ABSOLUTE AUTO 8.81 K/uL (1.0-7.6); NEUTROPHILS PERCENT AUTO 80.8 % (40.0-78.1); PLATELET COUNT,PLT 289 K/uL (130-375); WHITE BLOOD CELL COUNT,WBC 10.9 K/uL (3.2-11.0)
[2024-05-04] MEDS: Acetaminophen 500 MG Tab PO ONE (17:46)
[2024-05-04 18:25] LABS: A/G RATIO 0.8 (1.2-2.2); ALANINE AMINOTRANSFERASE,ALT 22 U/L (12-78); ALBUMIN 2.7 g/dL (3.4-5.0); ALKALINE PHOSPHATASE 62 U/L (46-116); ASPARTATE AMNIOTRANSFERASE,AST 28 U/L (15-37); BILIRUBIN TOTAL 0.7 mg/dL (0.2-1.0); BLOOD UREA NITROGEN,BUN 10 mg/dL (7-18); CALCIUM 8.9 mg/dL (8.5-10.1); CARBON DIOXIDE,CO2 30 mmol/L (21-32); CHLORIDE,CL 99 mmol/L (100-108); CREATININE 0.7 mg/dL (0.8-1.3); EST CRCL DRUG DOSING (CG) 114.58 mL/min; ESTIMATED GFR 104 mL/min (>60); GLUCOSE RANDOM 163 mg/dL (74-106); POTASSIUM,K 3.8 mmol/L (3.6-5.2); PROTEIN TOTAL,TP 6.2 g/dL (6.4-8.2); SODIUM,NA 136 mmol/L (140-148)
[2024-05-04] MEDS: Prochlorperazine 10 MG/2 ML SDV IVPUSH ONE (18:27)
[2024-05-04 18:35] LABS: ANION GAP 10.8 mmol/L (5.0-14.0)
[2024-05-04 18:50] LABS: APPEARANCE,URINE CLEAR (CLEAR); BILIRUBIN,URINE NEGATIVE (NEGATIVE); COLOR,URINE YELLOW (YELLOW); GLUCOSE,URINE 100 mg/dL (NEGATIVE); KETONES,URINE NEGATIVE (NEGATIVE); LEUKOCYTE ESTERASE,URINE NEGATIVE (NEGATIVE); NITRITE,URINE NEGATIVE (NEGATIVE); OCCULT BLOOD,URINE NEGATIVE (NEGATIVE); PH,URINE 8.5 (5.0-8.0); PROTEIN,URINE 30 mg/dL (NEGATIVE)
[2024-05-04 19:03] LABS: AMORPHOUS SEDIMENT,URINE RARE; BACTERIA,URINE MODERATE; EPITHELIAL CELLS,URINE NOT SEEN; MUCUS,URINE NOT SEEN; RBC,URINE 0-5 (0-5); WBC,URINE 0-5 (0-5)
[2024-05-04] MEDS: Prochlorperazine 10 MG Tab PO ONE (20:28)
== END 2024-05-04 20:41 | disposition home or self-care (01) ==
LOC: JP.ED 16:39
DX: U07.1 COVID-19 (principal); E86.0 Dehydration; K21.9 Gastro-esophageal reflux disease without esophagitis; E11.40 Type 2 diabetes mellitus with diabetic neuropathy, unspecified; E66.9 Obesity, unspecified; E78.00 Pure hypercholesterolemia, unspecified; Z86.16 Personal history of COVID-19; Z79.82 Long term (current) use of aspirin; Z79.899 Other long term (current) drug therapy; Z91.048 Other nonmedicinal substance allergy status; Z91.030 Bee allergy status
CPT/HCPCS: 36415; 80053; 81001; 85025; 96361; 96374; 96375; 99283; 99284-25; A9270-GY; J0780; J2405; J7030; Q0164

== ENCOUNTER 2024-10-17 17:00 | Inpatient (IN) | payer BC ==
[2024-10-17] MEDS: Bupivacaine 0.25%/EPINEPHrine 1:200,000 30 ML SDV ONE (00:24)
[2024-10-17 17:23] LABS: HEMATOCRIT 43.5 % (38.4-49.7); HEMOGLOBIN 14.7 g/dL (12.9-16.9); MEAN CORPUSCULAR HEMOGLOBIN 31.7 pg (31.6-35.5); MEAN CORPUSCULAR HGB CONC 33.8 g/dL (31.6-35.5); PLATELET COUNT,PLT 216 K/uL (130-375); RED BLOOD CELL COUNT 4.63 M/uL (4.14-5.76); WHITE BLOOD CELL COUNT,WBC 25.5 K/uL (3.2-11.0)
[2024-10-17] MEDS: Sodium Chloride 0.9% 1,000 ML IV SCH ×2 (17:27→18:57)
[2024-10-17] MEDS: Ondansetron 4 MG/2 ML SDV IVPUSH ONE (17:27)
[2024-10-17 17:30] LABS: APPEARANCE,URINE CLEAR (CLEAR); BILIRUBIN,URINE NEGATIVE (NEGATIVE); GLUCOSE,URINE 500 mg/dL (NEGATIVE); KETONES,URINE NEGATIVE (NEGATIVE); LEUKOCYTE ESTERASE,URINE TRACE (NEGATIVE); NITRITE,URINE NEGATIVE (NEGATIVE); OCCULT BLOOD,URINE NEGATIVE (NEGATIVE); PH,URINE 6.5 (5.0-8.0); PROTEIN,URINE 100 mg/dL (NEGATIVE)
[2024-10-17] MEDS: HYDROmorphone 0.5 MG/0.5 ML Syringe IVPUSH ONE ×2 (17:37→19:13)
[2024-10-17 17:40] LABS: AMORPHOUS SEDIMENT,URINE NOT SEEN; BACTERIA,URINE RARE; COLOR,URINE OTHER (YELLOW); EPITHELIAL CELLS,URINE RARE; MUCUS,URINE NOT SEEN; RBC,URINE 0-5 (0-5); WBC,URINE 0-5 (0-5)
[2024-10-17 17:50] LABS: A/G RATIO 0.8 (1.2-2.2); ALANINE AMINOTRANSFERASE,ALT 23 U/L (12-78); ALBUMIN 3.1 g/dL (3.4-5.0); ALKALINE PHOSPHATASE 63 U/L (46-116); ASPARTATE AMNIOTRANSFERASE,AST 17 U/L (15-37); BLOOD UREA NITROGEN,BUN 14 mg/dL (7-18); CALCIUM 9.2 mg/dL (8.5-10.1); CARBON DIOXIDE,CO2 27 mmol/L (21-32); CHLORIDE,CL 94 mmol/L (100-108); EST CRCL DRUG DOSING (CG) 80.53 mL/min; ESTIMATED GFR 85 mL/min (>60); GLUCOSE RANDOM 192 mg/dL (74-106); POTASSIUM,K 3.7 mmol/L (3.6-5.2); PROTEIN TOTAL,TP 6.8 g/dL (6.4-8.2); SODIUM,NA 131 mmol/L (140-148)
[2024-10-17 17:51] LABS: ANION GAP 13.7 mmol/L (5.0-14.0)
[2024-10-17 17:55] LABS: BLAST ABSOLUTE MAN 0.51 K/uL (0-0); BLASTS PERCENT MAN 2 %; LYMPHOCYTES ABSOLUTE MAN 0.77 K/uL (0.8-3.3); LYMPHOCYTES PERCENT MAN 3 % (24-44); MONOCYTES ABSOLUTE MAN 0.77 K/uL (0.20-0.90); MONOCYTES PERCENT MAN 3 % (2-6); NEUTROPHILS ABSOLUTE MAN 23.46 K/uL (1.0-7.6); SEG NEUTROPHILS PERCENT MAN 92 % (36-66)
[2024-10-17 18:10] LABS: C-REACTIVE PROTEIN 28.49 mg/dL (<0.50)
[2024-10-17] MEDS: Sodium Chloride 0.9% 100 ML IV ONE (18:23)
[2024-10-17] MEDS: Iopamidol 612 MG/ML 100 ML Bottle IV ONE (18:23)
[2024-10-17] MEDS: Sodium Chloride 0.9% 10 ML Syringe FLUSH ONE (18:23)
[2024-10-17] MEDS: Piperacillin/Tazobactam 4.5 GM in Sodium Chloride 0.9% 100 ML IV ONE (18:46)
[2024-10-17] MEDS ORDERED: fentaNYL 250 MCG/5 ML SDV ONE (21:46)
[2024-10-17] MEDS ORDERED: Neostigmine Methylsulfate 10 MG/10 ML MDV ONE (21:48)
[2024-10-17] MEDS ORDERED: Rocuronium 50 MG/5 ML Vial ONE (21:48)
[2024-10-17] MEDS ORDERED: Glycopyrrolate 0.2 MG/ML 5 ML MDV ONE (21:48)
[2024-10-17] MEDS ORDERED: Dexamethasone 4 MG/ML SDV ONE (21:48)
[2024-10-17] MEDS ORDERED: Ondansetron 4 MG/2 ML SDV ONE (21:48)
[2024-10-17] MEDS ORDERED: Succinylcholine 200 MG/10 ML MDV ONE (21:48)
[2024-10-17] MEDS ORDERED: Propofol 200 MG/20 ML SDV ONE (21:48)
[2024-10-17] MEDS ORDERED: ePHEDrine 50 MG/ML SDV ONE (22:36)
[2024-10-17] MEDS ORDERED: ceFAZolin 1 GM Vial ONE (22:45)
[2024-10-17] MEDS ORDERED: Sodium Chloride 0.9% 10 ML ONE (22:45)
[2024-10-17] MEDS ORDERED: Bupivacaine 0.25%/EPINEPHrine 1:200,000 30 ML SDV ONE (22:50)
[2024-10-17] MEDS ORDERED: Lactated Ringers 1,000 ML ONE (23:57)
[2024-10-18] MEDS ORDERED: Morphine 2 MG/ML SYRINGE IVPUSH PRN (01:54)
[2024-10-18] MEDS: Tamsulosin 0.4 MG Cap.ER PO SCH (02:52)
[2024-10-18] MEDS: Pantoprazole 40 MG Tab.CR PO SCH (02:52)
[2024-10-18] MEDS: buPROPion 150 MG Tab.ER PO SCH (02:52)
[2024-10-18] MEDS: Acetaminophen/oxyCODONE 325-5 MG Tab PO PRN (02:52)
[2024-10-18] MEDS: ceFAZolin 2 GM in Sodium Chloride 0.9% 50 ML IV SCH (05:11)
[2024-10-18 05:50] LABS: BASOPHILS PERCENT AUTO 0.1 % (0.1-1.3); EOSINOPHILS PERCENT AUTO 0.1 % (0.0-5.4); HEMATOCRIT 35.8 % (38.4-49.7); IMMATURE GRAN PERCENT AUTO 1.7 % (0.0-0.7); LYMPHOCYTES PERCENT AUTO 2.3 % (11.4-47.7); MEAN CORPUSCULAR HEMOGLOBIN 32.3 pg (31.6-35.5); MEAN CORPUSCULAR HGB CONC 33.5 g/dL (31.6-35.5); MEAN CORPUSCULAR VOLUME 96.2 fL (81.4-99.0); MONOCYTES ABSOLUTE AUTO 0.99 K/uL (0.20-0.90); MONOCYTES PERCENT AUTO 5.7 % (3.3-12.6); NEUTROPHILS ABSOLUTE AUTO 15.73 K/uL (1.0-7.6); NEUTROPHILS PERCENT AUTO 90.1 % (40.0-78.1); PLATELET COUNT,PLT 166 K/uL (130-375); RED BLOOD CELL COUNT 3.72 M/uL (4.14-5.76); WHITE BLOOD CELL COUNT,WBC 17.5 K/uL (3.2-11.0)
[2024-10-18 05:52] LABS: BASOPHILS ABSOLUTE AUTO 0.01 K/uL (0.00-0.10); EOSINOPHILS ABSOLUTE AUTO 0.02 K/uL (0.00-0.40)
[2024-10-18 06:11] LABS: A/G RATIO 0.7 (1.2-2.2); ALANINE AMINOTRANSFERASE,ALT 30 U/L (12-78); ALBUMIN 2.3 g/dL (3.4-5.0); ALKALINE PHOSPHATASE 49 U/L (46-116); ANION GAP 11.7 mmol/L (5.0-14.0); ASPARTATE AMNIOTRANSFERASE,AST 34 U/L (15-37); BILIRUBIN TOTAL 0.6 mg/dL (0.2-1.0); BLOOD UREA NITROGEN,BUN 13 mg/dL (7-18); CALCIUM 8.6 mg/dL (8.5-10.1); CARBON DIOXIDE,CO2 27 mmol/L (21-32); CHLORIDE,CL 100 mmol/L (100-108); CREATININE 0.9 mg/dL (0.8-1.3); EST CRCL DRUG DOSING (CG) 89.48 mL/min; ESTIMATED GFR 96 mL/min (>60); GLUCOSE RANDOM 202 mg/dL (74-106); POTASSIUM,K 4.7 mmol/L (3.6-5.2); PROTEIN TOTAL,TP 5.4 g/dL (6.4-8.2); SODIUM,NA 134 mmol/L (140-148)
[2024-10-18] MEDS: Ondansetron 4 MG/2 ML SDV IVPUSH PRN (08:44)
[2024-10-18] MEDS: diphenhydrAMINE 50 MG/ML SDV IVPUSH PRN (08:44)
[2024-10-18] MEDS: Magnesium Oxide 400 MG Tab PO SCH ×2 (08:56→21:28)
[2024-10-18] MEDS: Dextrose 5%-Lactated Ringers 1,000 ML IV SCH (09:27)
[2024-10-18] MEDS: diphenhydrAMINE 25 MG Cap PO PRN (14:24)
[2024-10-18] MEDS: Ketorolac 30 MG/ML SDV IVPUSH PRN (15:27)
[2024-10-18] MEDS: Aspirin 81 MG Tab.Chew PO SCH (21:28)
[2024-10-18] MEDS: traZODone 50 MG Tab PO SCH (21:29)
[2024-10-18] MEDS: Docusate Sodium 100 MG Cap PO PRN (21:33)
[2024-10-19 09:37] LABS: BASOPHILS PERCENT AUTO 0.2 % (0.1-1.3); EOSINOPHILS ABSOLUTE AUTO 0.07 K/uL (0.00-0.40); EOSINOPHILS PERCENT AUTO 0.7 % (0.0-5.4); HEMATOCRIT 35.8 % (38.4-49.7); HEMOGLOBIN 11.7 g/dL (12.9-16.9); IMMATURE GRAN ABSOLUTE AUTO 0.05 K/uL (0.00-0.23); IMMATURE GRAN PERCENT AUTO 0.5 % (0.0-0.7); LYMPHOCYTES ABSOLUTE AUTO 1.12 K/uL (0.8-3.3); LYMPHOCYTES PERCENT AUTO 11.4 % (11.4-47.7); MEAN CORPUSCULAR HEMOGLOBIN 31.7 pg (31.6-35.5); MEAN CORPUSCULAR HGB CONC 32.7 g/dL (31.6-35.5); MONOCYTES ABSOLUTE AUTO 0.76 K/uL (0.20-0.90); MONOCYTES PERCENT AUTO 7.7 % (3.3-12.6); NEUTROPHILS ABSOLUTE AUTO 7.79 K/uL (1.0-7.6); NEUTROPHILS PERCENT AUTO 79.5 % (40.0-78.1); PLATELET COUNT,PLT 209 K/uL (130-375); RED BLOOD CELL COUNT 3.69 M/uL (4.14-5.76); WHITE BLOOD CELL COUNT,WBC 9.8 K/uL (3.2-11.0)
[2024-10-19 09:40] LABS: BASOPHILS ABSOLUTE AUTO 0.02 K/uL (0.00-0.10)
[2024-10-19 09:59] LABS: A/G RATIO 0.8 (1.2-2.2); ALBUMIN 2.5 g/dL (3.4-5.0); BILIRUBIN DIRECT 0.16 mg/dL (0.0-0.2); BILIRUBIN INDIRECT 0.14; BILIRUBIN TOTAL 0.3 mg/dL (0.2-1.0); CALCIUM 8.8 mg/dL (8.5-10.1); CREATININE 0.9 mg/dL (0.8-1.3); EST CRCL DRUG DOSING (CG) 89.48 mL/min; POTASSIUM,K 4.1 mmol/L (3.6-5.2); PROTEIN TOTAL,TP 5.8 g/dL (6.4-8.2)
[2024-10-19 10:12] LABS: ANION GAP 13.1 mmol/L (5.0-14.0)
[2024-10-19] MEDS: Acetaminophen 500 MG Tab PO SCH (13:40)
[2024-10-19] MEDS ORDERED: Ketorolac 15 MG/ML SDV IVPUSH PRN (14:00)
[2024-10-19] MEDS: oxyCODONE 5 MG Tab PO PRN (16:00)
== END 2024-10-19 18:21 | disposition home or self-care (01) | DRG 262 ==
LOC: JP.ED 17:00 → JP.SDS 21:22 → JP.MS 10-18 01:51
PROVIDERS: ADMIT Surgery; ATTEND Surgery
PROC: 0FT40ZZ Resection of Gallbladder, Open Approach (ICD-10-PCS; principal; 2024-10-18)
PROC: 0FJ44ZZ Inspection of Gallbladder, Percutaneous Endoscopic Approach (ICD-10-PCS; 2024-10-18)
DX: K80.00 Calculus of gallbladder with acute cholecystitis without obstruction (principal); E11.40 Type 2 diabetes mellitus with diabetic neuropathy, unspecified; L30.9 Dermatitis, unspecified; K21.9 Gastro-esophageal reflux disease without esophagitis; I25.10 Atherosclerotic heart disease of native coronary artery without angina pectoris; E78.00 Pure hypercholesterolemia, unspecified; N40.0 Benign prostatic hyperplasia without lower urinary tract symptoms; F15.90 Other stimulant use, unspecified, uncomplicated; F32.A Depression, unspecified; E86.0 Dehydration; Z98.890 Other specified postprocedural states; Z79.82 Long term (current) use of aspirin; Z95.1 Presence of aortocoronary bypass graft; Z91.030 Bee allergy status; Z91.048 Other nonmedicinal substance allergy status; Z79.02 Long term (current) use of antithrombotics/antiplatelets; Z79.899 Other long term (current) drug therapy; Z87.19 Personal history of other diseases of the digestive system; Z87.81 Personal history of (healed) traumatic fracture; Z86.16 Personal history of COVID-19; Z98.84 Bariatric surgery status
CPT/HCPCS: 00790-QZ; 36415; 71045; 71045-26; 74177; 76000; 80048; 80053; 80076; 81001; 83605; 83690; 84484; 85025; 86140; 87040; 93005; 96361; 96365; 96375; 96376; 99284-25; 99285; A9270-GY; C1894; J0330; J0690; J1100; J1200; J1596; J1885; J2405; J2543; J2704; J2710; J3010; J3490; J7030; J7120; J7121; Q9967